=== PATIENT | male | born 1965 | race African-American/Black ===

== ENCOUNTER 2018-06-12 12:18 | Day surgery (SDC) | payer OTHER ==
[2018-06-08 13:47] VITALS: BMI 31.5
[2018-06-12] MEDS ORDERED: MIDAZOLAM HCL 2 MG/2 ML SINGLE DOSE VIAL ONE (14:20)
[2018-06-12] MEDS ORDERED: PROPOFOL 20 ML ONE (14:20)
--- NOTE | 2018-06-12 14:39 | OP ---
Operative Note - Note: Operative Date: 06/12/18 Pre-Operative Diagnosis: Right renal stone Operation: Right ESWL Findings: 5 mm mid pole Right renal stone Post-Operative Diagnosis: Same as Pre-op Surgeon: Gian Khanna Anesthesia: Fractional Estimated Blood Loss (mls): 0
[2018-06-12] MEDS ORDERED: KETOROLAC TROMETHAMINE 30 MG/1 ML VIAL ONE (14:40)
[2018-06-12 16:40] VITALS: BP 137/83; PULSE 60; TEMP 98.2
--- NOTE | 2018-06-12 20:41 | OP ---
DATE OF OPERATION: 06/12/2018 PREOPERATIVE DIAGNOSIS: Right renal stone. POSTOPERATIVE DIAGNOSIS: Right renal stone. PROCEDURE: Right extracorporeal shock wave lithotripsy. ATTENDING: Susan Fernandez MD ANESTHESIA: Fractional. DESCRIPTION OF OPERATION: The patient was brought in the operating room and placed in supine position on the operating room table. Ultrasonography and fluoroscopy were performed. A right 5-mm mid-pole stone was noted. At this point, anesthesia and preoperative antibiotics were administered. Shock wave lithotripsy was then started; 2500 impulses at 18 joules of power were administered to the stone with excellent fragmentation noted. No complications were noted. The patient went to the recovery room. SUSAN FERNANDEZ M.D. [id number]
== END 2018-06-12 16:40 | disposition home or self-care (01) ==
LOC: JASU-SURG 12:18
PROVIDERS: ATTEND Urology
PROC: 0TF3XZZ Fragmentation in Right Kidney Pelvis, External Approach (ICD-10-PCS; principal; 2018-06-12 14:00)
DX: N20.0 Calculus of kidney (principal)